=== PATIENT | male | born 1955 | race Caucasian/White ===

== ENCOUNTER 2025-04-22 16:42 | Emergency (ER) | payer MEDICARE, MEDICAID ==
[~2025-04-22] VITALS: Ht 162.6 cm; Wt 81.0 kg
[2025-04-22 16:47] VITALS: O2SAT 99
[2025-04-22 17:42] VITALS: BP 142/63; PULSE 80; RESP 15; TEMP 37; O2SAT 100
== END 2025-04-22 18:51 | disposition home or self-care (01) ==
LOC: ER 16:42
DX: T82.9XXA Unspecified complication of cardiac and vascular prosthetic device, implant and graft, initial encounter (principal); I48.91 Unspecified atrial fibrillation; E11.9 Type 2 diabetes mellitus without complications; I10 Essential (primary) hypertension; Z99.2 Dependence on renal dialysis; Y99.8 Other external cause status
CPT/HCPCS: 99283